=== PATIENT | female | born 1975 | race Caucasian/White ===

== ENCOUNTER 2017-03-18 18:25 | Observation (INO) ==
[2017-03-18 19:43] LABS: Basophils % 0.4 %; Eosinophils # 0.3 K/mcL (0.0-0.6); Eosinophils % 3.9 %; Hemoglobin 12.2 g/dL (11.5-15.4); Immature Granulocytes % 0.1 % (0-4); Lymphocytes % 25.1 %; Mean Corpuscular HGB Conc 31.3 g/dL (31.6-35.5); Mean Corpuscular Hemoglobin 27.5 pg (28.0-33.3); Mean Platelet Volume 9.6 fL (9.4-12.4); Monocytes # 0.4 K/mcL (0.0-1.3); Monocytes % 4.9 %; Neutrophils # 5.1 K/mcL (1.6-8.9); Platelet Count 234 K/mcL (140-400); Red Blood Count 4.43 M/mcL (3.82-4.97); Red Cell Distribution Width 13.3 % (11.5-14.5); Segmented Neutrophils % 65.6 %
[2017-03-18] MEDS ORDERED: Aspirin 81 MG TAB.CHEW PO ONE (19:49)
--- NOTE | 2017-03-18 19:53 | Emergency Department Note ---
Disposition Clinical Impression: Elevated blood pressure reading Chest pain Qualifiers: Chest pain type: unspecified Qualified Code(s): R07.9 - Chest pain, unspecified Disposition: Admitted As Inpatient Condition: Fair Time of Disposition: 21:27 Chest Pain HPI - General Chief Complaint: ED Chest Pain Stated Complaint: chest discomfort Time Seen by Provider: 03/18/17 19:31 Source: patient Mode of arrival: ambulatory Limitations: no limitations Vital Signs Reviewed: Yes Nursing Notes Reviewed: Yes - History of Present Illness HPI Narrative: 41-year-old female presents for evaluation of chest discomfort. Patient notes intermittent chest discomfort over the past 24 hours. Appears to be nonexertional left-sided. Did have associated left arm pain as well. No aggravating or alleviating factors. No pleuritic component. No fevers or cough. No nausea vomiting or diaphoresis. Patient did have some intermittent dyspnea associated with pain. Patient denies any history of blood clots in her lungs or her legs. No recent travel. No recent surgeries. No leg swelling. No history of ACS. Patient did have a history of elevated blood pressure in the past was gradually managed without blood pressure medications. Patient denies any early family cardiac history. Nonsmoker. Severity scale (1-10): 5 - Related Data Home Medications Medication Instructions Recorded Confirmed No Known Home Drugs 03/18/17 03/18/17 Allergies Allergy/AdvReac Type Severity Reaction Status Date / Time No Known Allergies Allergy Verified 03/18/17 18:39 All systems ED: reviewed and negative except as stated. Constitutional: Reports: as per HPI. Denies: fever Eyes: Reports: as per HPI ENT ED: Reports: as per HPI Cardiovascular: Reports: as per HPI, chest pain Respiratory: Reports: as per HPI, dyspnea. Denies: cough Gastrointestinal: Reports: as per HPI. 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 Absent: respiratory distress - Cardiovascular Cardiovascular exam: Present: regular rate, normal rhythm. Absent: systolic murmur - Abdominal Exam Abdominal exam: Present: soft - Extremities Exam Extremities exam: Present: normal inspection. Absent: pedal edema - Back Exam Back exam: Present: normal inspection - Neurological Exam Neurological exam: Present: alert, oriented X3, CN II-XII intact - Skin Skin exam: Present: warm, dry, intact, normal color Course Course Narrative: Patient seen and examined. Patient does note some chest discomfort that has been intermittent. Patient does not have any risk factors for ACS however does have a concerning history with EKG changes. Patient will get basic lab work and cardiopulmonary evaluation with aspirin and nitroglycerin. Patient's blood pressure was also noted be elevated upon arrival. - Reevaluation(s) Reevaluation #1: Patient's pain has resolved. Patient did receive nitroglycerin as well as an aspirin. Repeat EKG shows normal sinus rhythm with no ST depression or elevation. Time: 20:37 Reevaluation #2: Patient's resting comfortably. Patient was updated on plan of care. Patient's agreeable. Continues to deny chest pain. Time: 21:44 Vital Signs Temperature 98.5 F 03/18/17 18:40 Pulse Rate 74 03/18/17 18:40 Respiratory Rate 20 03/18/17 18:40 Blood Pressure 191/126 03/18/17 18:40 O2 Sat by Pulse Oximetry 100 03/18/17 18:40 Temperature 98.5 F 03/18/17 18:40 Pulse Rate 65 03/18/17 22:10 Respiratory Rate 16 03/18/17 22:10 Blood Pressure 160/96 03/18/17 22:10 O2 Sat by Pulse Oximetry 97 03/18/17 22:10 Oxygen Delivery Oxygen Delivery Room Air Chest Pain - MDM Narrative Medical decision making narrative: Patient presented with concerns of chest pain. Patient did have EKG abnormalities which have resolved during the course of the ED visit. Patient's pain is nitroglycerin. Patient was given aspirin. Patient did have a concerning history given the chest pain. Patient's heart score is 84. Patient was not heparinized her anticoagulated given resolution of chest pain as well as resolution of EKG findings. Given the patient's history and physical exam with associated EKG changes the patient will be admitted to hospital service for further evaluation and monitoring. Patient does not have a pulmonary embolism as patient is PERC negative and is considered low risk for PE. - Lab Data Lab results reviewed: Yes I reviewed the patient's lab results. Result diagrams: 03/18/17 19:37 03/18/17 19:37 Lab Results 03/18/17 03/18/17 03/18/17 Range/Units 19:37 19:37 19:37 WBC 7.8 (4.3-11.1) K/mcL RBC 4.43 (3.82-4.97) M/mcL Hgb 12.2 (11.5-15.4) g/dL Hct 39.0 (35.3-44.9) % MCV 88.0 (83.0-100.0) fL MCH 27.5 L (28.0-33.3) pg MCHC 31.3 L (31.6-35.5) g/dL RDW 13.3 (11.5-14.5) % Plt Count 234 (140-400) K/mcL MPV 9.6 (9.4-12.4) fL Immature Gran % 0.1 (0-4) % Seg Neutrophils % 65.6 % Lymphocytes % 25.1 % Monocytes % 4.9 % Eosinophils % 3.9 % Basophils % 0.4 % Neutrophils # 5.1 (1.6-8.9) K/mcL Lymphocytes # 2.0 (0.6-4.6) K/mcL Monocytes # 0.4 (0.0-1.3) K/mcL Eosinophils # 0.3 (0.0-0.6) K/mcL Basophils # 0.0 (0.0-0.2) K/mcL Sodium 137 (136-145) mEq/L Potassium 3.8 (3.5-5.1) mEq/L Chloride 107 (98-107) mEq/L Carbon Dioxide 24 (23-29) mEq/L BUN 9 (6-20) mg/dL Creatinine 0.76 (0.60-1.20) mg/dL Est GFR ( Amer) > 60 (> 60) Est GFR (Non-Af Amer) > 60 (> 60) BUN/Creatinine Ratio 12 (6-26) Glucose 103 (70-105) mg/dL Calculated Osmolality 283 (280-300) Calcium 9.0 (8.6-10.3) mg/dL Troponin I < 0.03 (< 0.04) ng/mL - Radiology Data Radiology results reviewed: Yes I reviewed the patient's radiology results. Chest X-Ray 03/18/17 19:15 IMPRESSION: No acute cardiopulmonary abnormality. D/ / Huey Bruce / Huey Bruce Interpreting Provider: Huey Bruce - EKG Data EKG attestation: Yes I reviewed and interpreted this EKG. EKG shows normal: sinus rhythm Rate: normal Rhythm: NSR Hulbert/QRS: normal ST segment depression in: v3, v4, v5 T wave inversions noted in: aVR, v1 When compared to previous EKG there are: changes noted Interpretation: nonspecific ST-T wave changes Heart Score - Score History: Highly Suspicious EKG: Significant ST-Depression Age: Less than 45 Risk Factors: No risk factors known Troponin: Less than normal limit HEART Score Total: 4 S.B.A.R. - S.B.A.R. Situation: Demographics Background: Presenting Complaint Assessment: Vital Signs, Course and respsone to treatment, Patient/Family Expectation Recommendation: Barrier(s) to disposition, Recommendation based on pending studies, treatments, or consults S.B.A.R. Report Given to: Dr. Hirsch S.B.AJabari Repor Time: 21:27 Attestation Statement - Attestation Attestation: I, Kt Luz, examined this patient and my medical decision-making was reviewed with the COAT MAKER/PA/Advanced Practice Nurse/Resident Physician. I agree with the documented findings, disposition and treatment plan as described except to the extent set forth below. 41-year-old female presents emergency Department with concerns of intermittent chest pain over the past 24 hours. Patient states the pain feels like a tightness in the center of her chest that does not radiate. Patient has a history of high blood pressure. On initial EKG she had ST depressions in leads V3 through V5. Patient's pain improved after observation emergency department and her ST depressions improved on subsequent ECGs. Patient also initially had elevated BP which improved after administration of nitroglycerin. Patient denies associated diaphoresis or palpitations or shortness of breath. Patient will be admitted to the hospital for further care and evaluation.
[2017-03-18 20:02] LABS: BUN/Creatinine Ratio 12 (6-26); Blood Urea Nitrogen 9 mg/dL (6-20); Carbon Dioxide 24 mEq/L (23-29); Chloride 107 mEq/L (98-107); Glucose 103 mg/dL (70-105); Osmolality,Calculated 283 (280-300); Potassium 3.8 mEq/L (3.5-5.1); Sodium 137 mEq/L (136-145); eGFR For African Americans > 60 (> 60); eGFR For Non-African Americans > 60 (> 60)
[2017-03-18] MEDS: Nitroglycerin 0.4 MG TAB.SUBL SL PRN (20:14)
[2017-03-18] MEDS ORDERED: Naloxone 0.4 MG/ML INJ IVP PRN (23:24)
--- NOTE | 2017-03-18 23:50 | Internal Med History&Physical ---
<Travis Funk - Last Filed: 03/19/17 00:23> Date of Encounter: 03/19/17 Time of Encounter: 10:30 Assessment and Plan (1) Angina pectoris Current visit: Yes Status: Acute Both CP and ST depression improved on nitrate administration CAD vs Prinzmetal angina given age and relative paucity of risk factors Cardiology consulted NPO after midnight, should cardiac catheterization be warranted Started ASA, statin Holding betablocker due to borderline bradycardia Will check Echo, lipid cascade, and TSH Continuous cardiac monitoring (2) ST segment depression Current visit: Yes Status: Resolved See plan of care above (3) Elevated blood pressure reading Current visit: Yes Status: Acute 191/126 on presentation Improved to 148/93 Now 160/96 Hydralazine for systolic BP >160 Will monitor (4) Thyroid nodule Current visit: Yes Status: Acute Will check TSH (5) DVT prophylaxis Current visit: Yes Status: Acute Heparin subq q12h Internal Medicine - H&P: HPI Chief complaint: Chest tightness Admitted From: Home Plans for Post Hospital Care: Home History of present illness: Ms. Kessler is a 41 year old female who presented with two days of chest tightness. Her symptoms began with headache yesterday morning. She developed chest tightness sometime in the afternoon, she cannot note any particular activity when it started. She denies ever having similar symptoms. She attributed this symptom to stress, as her mother recently had a decline involving her head and neck cancer. The symptoms had not resolved today, and she was experiencing left arm numbness, so she decided to come to the ED. Initial EKG showed ST elevations in leads 2-5. This resolved, along with her chest discomfort, after administration of nitroglycerin. It has not returned since. She additionally admits to some mild, intermittent SOB. She denies palpitations , nausea, and vomiting. She normally walks 2-4 miles per day, but has noticed increased exercise intolerance with "a racing heart," but no chest pain or tightness. She denies tobacco, alcohol, and illicit drug use, including cocaine. PMH is significant only for raynaud's and a thyroid nodule. She had been prescribed a blood pressure medication in the past, but has never taken it. She states that she had a single elevation in blood pressure on seeing a nurse practitioner at her PCP's office, but that when she saw her PCP at the next visit, it was back to normal. Family history significant for a major heart attack in a grandfather around age 70, and CHF in a grandmother, also around age 70 Past Med Surg Social Fam HX - Past Medical History Medical history: no medical history Psychiatric history: no psych history - Social History Smoking Status: Never smoker Smokeless Tobacco Status: No Alcohol use: none Drug use: none Internal Medicine - H&P: Meds No Known Home Drugs 03/18/17 [History] 3 Allergy/AdvReac Type Severity Reaction Status Date / Time No Known Allergies Allergy Verified 03/18/17 18:39 All Systems PM: A 10-system review of systems was performed and is negative for pertinent findings except as documented above in the HPI. Review of systems: As per HPI - Constitutional Vitals: Temp Pulse Resp BP Pulse Ox 98.6 F 69 16 160/93 95 03/18/17 23:10 03/18/17 23:10 03/18/17 23:10 03/18/17 23:10 03/18/17 23:10 General appearance: Present: cooperative, A&O X 3, pleasant, no acute distress, answers questions appropriately - Head Head exam: Present: atraumatic, normal inspection, normocephalic - ENT ENT exam: Present: mucous membranes moist - Neck Neck exam general surgery: Present: trachea midline - Respiratory Respiratory exam: Present: CTAB. Absent: accessory muscle use, respiratory distress - Cardiovascular Cardiovascular exam: Present: RRR, +S1, +S2. Absent: clicks, diastolic murmur, gallop, systolic murmur - GI/Abdominal GI/Abdominal exam: Present: soft, no peritoneal signs. Absent: tenderness - Extremities Exam Extremities exam: Present: radial pulses palpable and symmetrical. Absent: pedal edema - Neurological Exam Neurological exam: Present: alert, oriented X3, no focal deficits - Psychiatric Psychiatric exam: Present: normal affect, normal mood. Absent: agitated, anxious - Skin Skin exam: Present: dry, warm Internal Med - H&P Results - Labs CBC & Chem 7: 03/18/17 19:37 03/18/17 19:37 <Alex Hirsch - Last Filed: 03/19/17 00:44> Date of Encounter: 03/19/17 Time of Encounter: 00:33 Assessment and Plan (1) Angina pectoris Current visit: Yes Status: Acute (2) DVT prophylaxis Current visit: Yes Status: Acute (3) Elevated blood pressure reading Current visit: Yes Status: Acute Past Med Surg Social Fam HX - Additional Family History Additional family history: FH negative for CAD except for paternal grandparents in older years - Constitutional Constitutional: no fever(s) - EENT Eyes: no blurry vision, no change in vision Nose, mouth and throat: no nasal congestion, no sore throat - Cardiovascular Cardiovascular ROS IM: chest pain, diaphoresis, dyspnea, no lightheadedness, no syncope - Respiratory Respiratory: no cough, no hemoptysis - Gastrointestinal Gastrointestinal: heartburn, no abdominal pain, no diarrhea, no nausea, no vomiting - Genitourinary Genitourinary: no dysuria, no flank pain, no hematuria - Constitutional Vitals: Temp Pulse Resp BP Pulse Ox 98.6 F 69 16 160/93 95 03/18/17 23:10 03/18/17 23:10 03/18/17 23:10 03/18/17 23:10 03/18/17 23:10 General appearance: Present: cooperative, A&O X 3, pleasant, no acute distress - Eye Eye exam: Present: EOMI, PERRL. Absent: scleral icterus - ENT ENT exam: Present: normal exam - Neck Neck exam general surgery: Present: supple - Respiratory Respiratory exam: Present: CTAB. Absent: chest wall tenderness, rales, rhonchi , wheezes - Cardiovascular Cardiovascular exam: Present: RRR, +S1, +S2. Absent: diastolic murmur, systolic murmur - GI/Abdominal GI/Abdominal exam: Present: soft. Absent: hepatomegaly, splenomegaly, tenderness - Extremities Exam Extremities exam: Present: full ROM, warm, radial pulses palpable and symmetrical. Absent: calf tenderness, tenderness - Back Exam Back exam: Absent: CVA tenderness (L), CVA tenderness (R) Internal Med - H&P Results - Labs CBC & Chem 7: 03/18/17 19:37 03/18/17 19:37 - EKG Data -: EKG Interpreted by Myself - EKG Data Prior EKG available for review: yes When compared to previous EKG: there are significant changes EKG comments: 03/19/17 00:36 NSR with 1 -[address]-T depression anterolaterally --> improved and resolved after NTG administration - Diagnostic Studies Chest x-ray Status: image reviewed by me (negative) - Attending Attestation I discussed the patient QAGAN TAYAGUNGIN, PMH, ROS, lab data, and exam findings with Dr. Funk. I then saw and examined patient independently as well. Patient currently chest pain free. She admits to having had chest pain off an on for a few weeks now, but she attributed it to "a lot of stress in my life". She recently lost her to a massive UT at 44 yo, is raising her young daughter as a single mother, and is helping care for her dying mother. She is under a significant amount of stress. However, given her chest pain relief with nitroglycerin and EKG changes that also improved with ntiroglycerin, I agree she has angina pectoris and her chest pain can not be ignored. Furthermore, I strongly favor a left heart cath over a stress test. We will keep her npo tonight, consult cardiology and order ECHO. Ischemic work-up per cardiology. If above work-up negative, she can then undergo GI work-up and/or mental health/ counseling for the excessive stress has has in her life. I discussed these issues at length with patient and her sister at bedside. Patient was quite tearful but very receptive and in agreement with my recommendations. Other than my comments above and noted exam findings, I agree with Dr. Funk' s assessment and plan.
[2017-03-19] MEDS ORDERED: *HR* Morphine 2 MG/ML SYRINGE IVP PRN (00:46)
[2017-03-19] MEDS ORDERED: *HR* HYDROcodone/Acet 5/325 mg TABLET PO PRN (00:46)
[2017-03-19] MEDS: *HR* Heparin 5,000 UNIT/ML VIAL SQ SCH ×2 (05:21→18:34)
[2017-03-19 07:13] LABS: BUN/Creatinine Ratio 11 (6-26); Blood Urea Nitrogen 8 mg/dL (6-20); Calcium 8.5 mg/dL (8.6-10.3); Carbon Dioxide 27 mEq/L (23-29); Chloride 109 mEq/L (98-107); Glucose 83 mg/dL (70-105); Osmolality,Calculated 289 (280-300); Potassium 3.7 mEq/L (3.5-5.1); Sodium 141 mEq/L (136-145); eGFR For African Americans > 60 (> 60); eGFR For Non-African Americans > 60 (> 60)
[2017-03-19 07:15] LABS: Chol/HDL Ratio 2.1 (0-4.9)
[2017-03-19 07:21] LABS: Thyroid Stimulating Hormone 2.624 mcIU/mL (0.340-5.600)
[2017-03-19 07:46] LABS: Hemoglobin 11.9 g/dL (11.5-15.4); Mean Corpuscular HGB Conc 31.3 g/dL (31.6-35.5); Mean Corpuscular Hemoglobin 27.7 pg (28.0-33.3); Mean Corpuscular Volume 88.6 fL (83.0-100.0); Mean Platelet Volume 10.4 fL (9.4-12.4); Platelet Count 223 K/mcL (140-400); Red Blood Count 4.29 M/mcL (3.82-4.97); Red Cell Distribution Width 13.3 % (11.5-14.5); Segmented Neutrophils % 58.8 %
[2017-03-19 07:47] LABS: Basophils % 0.7 %; Eosinophils # 0.2 K/mcL (0.0-0.6); Immature Granulocytes % 0.2 % (0-4); Lymphocytes # 1.7 K/mcL (0.6-4.6); Lymphocytes % 30.5 %; Monocytes # 0.3 K/mcL (0.0-1.3); Monocytes % 5.8 %; Neutrophils # 3.4 K/mcL (1.6-8.9)
--- NOTE | 2017-03-19 09:48 | Event Note ---
Date of Encounter: 03/19/17 Time of Encounter: 09:43 Patient has a past medical history of regards and thyroid nodule. Patient presented with 2 day history of chest tightness she had a headache yesterday morning and developed chest tightness throughout the day it was aggravated with activity she related the symptoms distress the symptoms continued throughout today she has also been experiencing left arm numbness. Chest discomfort resolved after administration nitroglycerin. She is doing well until this morning she went for her echocardiogram have all returned and she began to experience left-sided chest pressure she says very mild blood pressure right now is stable however upon presentation her blood pressure was elevated she denies any diagnosis of hypertension apparently she did have an episode where she saw her PCP in the office it was elevated when she came back the next visit was normal. She is not on any medications. I did order a stat troponin EKG and nitroglycerin for chest pain. She has been nothing by mouth after midnight for possible stress however stress test has been canceled due to having chest pain and will be performed in the a.m. Patient's chest pain was relieved with nitroglycerin no changes on EKG troponin was negative
[2017-03-19] MEDS: Nitroglycerin 0.4 MG TAB.SUBL SL PRN (09:55)
[2017-03-19] MEDS: Aspirin Enteric Coated 81 MG Tablet PO SCH (10:49)
--- NOTE | 2017-03-19 17:56 | Electrocardiograph Report ---
[address] [address] Test Date: 2017-03-18 Pat Name: Josie Kessler Department: 102 Room: 3B Gender: F Health Data Administrator: Celia : 1975 Requested By: Craig Jones Order Number: [id number] Reading MD: Kt Greenberg Measurements Intervals [place] Rate: 71 P: 71 [place]: 125 QRS: 65 QRSD: 88 T: 36 QT: 394 QTc: 417 Interpretive Statements SINUS RHYTHM MODERATE ST DEPRESSION Electronically Signed On 03-19-2017 17:55:11 EST by Kt Greenberg
--- NOTE | 2017-03-19 17:59 | Electrocardiograph Report ---
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
[2017-03-20] MEDS: *HR* Heparin 5,000 UNIT/ML VIAL SQ SCH (05:19)
[2017-03-20] MEDS: Aspirin Enteric Coated 81 MG Tablet PO SCH (10:01)
--- NOTE | 2017-03-20 12:32 | Discharge Summary ---
Date of Encounter: 03/20/17 Time of Encounter: 10:15 - Discharge Diagnosis (1) Angina pectoris Priority: Primary Status: Acute Comments: Patient presented with 2 days of chest tightness with some radiation to her left arm. Symptoms began 2 days ago while she was riding in the car with her father to take her mother to her chemotherapy appointment in [place]. Patient reports significant stress over the last week. EKG showed ST changes. Chest discomfort resolved with nitroglycerin in the ED. Pt denies any symptoms since that time. She denies n/v, diaphoresis, shortness of breath, dizziness, or palpitations. Pt is a non-smoker and is physically active, does not use drugs or drink alcohol. Echo: LVEF 60-65% with no significant valvular dysfunction, Stress test negative for ischemia or infarct with a gated EF of 70%. Troponins negative, chest xray negative. Pt remains pain free. Most likely due to stress/anxiety, but pt should follow up with cardiology and primary care provider after discharge. Continue ASA and Statin. (2) Chest pain Priority: Secondary Status: Acute Comments: Plan as above. Qualifiers: Chest pain type: unspecified Qualified Code(s): R07.9 - Chest pain, unspecified (3) DVT prophylaxis Priority: Secondary Status: Acute Comments: Heparin SQ (4) Elevated blood pressure reading Priority: Secondary Status: Acute Comments: Pt with borderline HTN. Discussed lifestyle changes with pt prior to placing her on medication. Encouraged frequent BP monitoring and keeping record to share with PCP at next follow up. (5) Thyroid nodule Priority: Secondary Status: Acute Comments: TSH WNL. Pt follows at [facility], stable with recent ultrasound. (6) ST segment depression Priority: Secondary Status: Resolved Comments: See above. - Discharge Medications Prescriptions: Aspirin Enteric Coated [Aspirin EC] 81 mg PO DAILY #30 tablet. Home Medications: Aspirin Enteric Coated [Aspirin EC] 81 mg PO DAILY #30 tablet. 03/20/17 [Rx] Allergies/Adverse Reactions: 3 Allergy/AdvReac Type Severity Reaction Status Date / Time No Known Allergies Allergy Verified 03/18/17 18:39 Procedures/tests Complete & Pending: Procedures Performed prior 72 hours Category Date Time Status NM papo perf SPECT multi [NM] Routine Exams 03/19/17 12:05 Taken ECG 12 lead ECG [ECG] Routine Y 03/19/17 10:08 Completed EKG [ECG 12 lead ECG] [ECG] Stat Y 03/19/17 09:41 Completed EV echocardiogram Routine Y 03/19/17 00:09 Completed SP exercise nuclear stress Routine Y 03/20/17 08:00 Completed Date of admission: 03/18/17 22:10 Primary care physician: Terrence Strong, Discharging clinician: Connie Sarmiento Anticipated date of discharge: 03/20/17 - Patient Status Disposition: Home, Self-Care Condition: Good Functional capacity at discharge: independent ambulation Overall status at discharge: patient is back to baseline - Discharge Instructions Follow Up With: Terrence Strong, [Primary Care Provider] - Additional Instructions: Follow up with your PCP in the next 7-10 days for a follow up, if you have continued pain, you may need to be referred to cardiology. Return to the ER as needed for any other problems or concerns, or if your symptoms return or worsen. Consider lifestyle modifications for hypertension control Return to your normal activities as tolerated. - Diet and Activity Activity: increase activity as tolerated Diet: low fat, low cholesterol, low salt diet Hospital course: Ms. Kessler is a 41 year old female with past medical history of borderline hypertension and pulmonary nodules. Patient presented to the emergency room with 2 day history of midsternal and left chest pressure with radiation to the left arm. EKG showed some ST depression. Both ST depression and chest pain resolved with nitroglycerin. She has had no chest pain since this time. Patient reports recent increased stress with family. She denies any nausea, vomiting, diaphoresis, lightheadedness or dizziness at the time or now. Chest x -ray and troponins were negative, stress test was negative, and echocardiogram all stable and within normal limits. She has preserved ejection fraction with no valvular dysfunction. Patient was stable thyroid nodule for which she follows at [facility]. TSH is normal. Patient with borderline hypertension, patient I discussed limiting lifestyle modifications prior to placing her on medication. She was agreeable. Vital signs and labs are stable and within normal limits. Patient is appropriate for discharge. - Time Spent with Patient Total time spent providing and/or coordinating discharge services: Less than 30 minutes - Constitutional Vitals: Temp Pulse Resp BP Pulse Ox 98.0 F 69 17 143/91 100 03/20/17 07:20 03/20/17 07:20 03/20/17 07:20 03/20/17 07:20 03/20/17 07:20 General appearance: Present: cooperative, A&O X 3, pleasant, no acute distress, answers questions appropriately - Head Head exam: Present: atraumatic, normal inspection, normocephalic - Eye Eye exam: Present: normal appearance, conjuntiva pink, sclera anicteric - Neck Neck exam general surgery: Present: normal inspection, supple, trachea midline. Absent: lymphadenopathy, tenderness - Respiratory Respiratory exam: Present: CTAB. Absent: accessory muscle use, rales, rhonchi, wheezes - Cardiovascular Cardiovascular exam: Present: RRR, +S1, +S2. Absent: diastolic murmur, gallop, rubs, systolic murmur - GI/Abdominal GI/Abdominal exam: Present: normal bowel sounds, soft. Absent: distended, hepatomegaly, tenderness - Extremities Exam Extremities exam: Present: warm, radial pulses palpable and symmetrical. Absent : calf tenderness, cyanotic, pedal edema - Neurological Exam Neurological exam: Present: alert, oriented X3, no focal deficits. Absent: facial droop, speech deficit - Skin Skin exam: Present: dry, intact, normal color, warm. Absent: rash
[2017-03-20 12:37] VITALS: BP 141/94
--- NOTE | 2017-03-21 10:20 | Electrocardiograph Report ---
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
--- NOTE | 2017-03-21 10:20 | Electrocardiograph Report ---
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
== END 2017-03-20 14:12 | disposition home or self-care (01) ==
LOC: EMEROO 18:25 → 3BNU 18:25
PROVIDERS: ADMIT Pediatrics; ATTEND Registered Nurse